=== PATIENT | male | born 1940 | race Caucasian/White ===

== ENCOUNTER 2020-01-26 19:13 | Inpatient (IN) | payer MEDICARE, BC, MEDICAID ==
[2020-01-26] MEDS ORDERED: Acetaminophen 325 MG TAB ONE (19:55)
--- NOTE | 2020-01-26 20:10 | RAD ---
Portable frontal chest radiograph: 01/26/2020 COMPARISON: None HISTORY: Altered mental status, Covid positive patient FINDINGS: Emphysematous changes are suspected in the upper lobes. There is a questionable nodule in t he mid right lung zone measuring 1.4 cm. No lobar consolidation or alveolar edema. IMPRESSION: Questionable mid right lung nodule as above. Follow-up PA and lateral imaging of the ches t advised. No focal consolidation or alveolar edema. CODE T Code lung nodule
[2020-01-26 20:20] LABS: #Eosinphils 0.1 thou/uL (0.0-0.7); #Lymphocytes 1.1 thou/uL (1.20-3.40); #Monocytes 1.1 thou/uL (0.11-0.59); #Neutrophils 9.9 thou/uL (1.40-6.50); %Basophils 0.4 % (0.0-1.0); %Eosinophils 0.6 % (0.0-10.0); %Lymphocytes 9.2 % (21.0-51.0); %Monocytes 8.7 % (0.0-10.0); %Neutrophils 81.1 % (42.0-75.0); Hemoglobin 15.4 g/dL (14.0-18.0); Mean Corpuscular HGB CONC 33.3 g/dL (32.0-36.0); Mean Corpuscular Hemoglobin 31.1 pg (27.0-31.0); Mean Corpuscular Volume 93.2 fL (78.0-98.0); Mean Platelet Volume 7.6 fL (7.4-10.4); Platelet Count 362 thou/uL (130-400); RBC Distribution Width 12.8 % (11.5-14.5); Red Blood Cell (RBC) Count 4.94 mill/uL (4.70-6.10); White Blood Cell (WBC) Count 12.2 thou/uL (4.8-10.8)
[2020-01-26 20:39] LABS: ALT (SGPT) 44 U/L (8-55); AST (SGOT) 67 U/L (5-34); Albumin 3.5 g/dL (3.4-4.8); Alkaline Phosphatase 87 U/L (40-110); Anion Gap 17 mmol/L (10-20); BUN (Urea Nitrogen) 44 mg/dL (8.4-25.7); Bilirubin, Total 0.3 mg/dL (0.2-1.2); Calc. Creatinine Clearance 0 mL/min (70-130); Calcium 9.3 mg/dL (7.8-10.44); Carbon Dioxide 25 mmol/L (23-31); Chloride 112 mmol/L (98-107); Estimated GFR-MDRD 45; Globulin 4.1 g/dL (2.4-3.5); Glucose 140 mg/dL (83-110); Potassium 3.8 mmol/L (3.5-5.1); Protein, Total 7.6 g/dL (5.8-8.1); Sodium 150 mmol/L (136-145)
[2020-01-26 21:04] LABS: Bacteria/HPF None Seen HPF (None Seen); Bilirubin Negative (Negative); Blood, Urine Negative (Negative); Clarity Turbid (Clear); Glucose, Urine (Dipstick) Normal (Negative); Ketone, Urine Negative (Negative); Leukocyte Negative Leu/uL (Negative); Nitrite Negative (Negative); Protein, Urine (Dipstick) 70 mg/dL (Neg-Trace); RBC/HPF None Seen HPF (0-3); Squamous Epithelial 0-3 HPF (0-3); Urobilinogen Normal mg/dL (Less than 2); WBC/HPF 0-3 HPF (0-3); pH, Urine 5.5 (5.0-9.0)
[2020-01-27 01:10] VITALS: BMI 21.5
[2020-01-27] MEDS: Sodium Chloride 0.45% 1,000 ML IV SCH ×2 (02:22→17:20)
--- NOTE | 2020-01-27 03:01 | HP ---
REASON FOR ADMISSION: Tachycardia. HISTORY OF PRESENT ILLNESS: This is an 79-year-old male patient who is a skilled nursing resident. He was transferred from another skilled nursing to [facility] because he tested positive for COVID-19 and that was approximately 2 weeks ago. I did speak with his niece over the phone who provided me with some information. She has not been getting much updates from [facility]. As far she knows, she was doing fairly well until today. He was noted to be tachycardic and refused to receive IV fluids or fluids and that is why he was sent to the emergency room. Upon his arrival, he was noted to be tachycardic and his blood work did reflect dehydration. He has also hypernatremia and he is being admitted for that reason. Patient is currently on the COVID unit. He appears to be comfortable, in no acute distress. Does not have any shortness of breath or cough. He is demented, unable to provide much information, his niece tells me that patient has been admitted to [facility] for multiple falls and one time he was diagnosed with bilateral subdural hematoma. No intervention was done or needed. Also, he was diagnosed with right hip fracture. He did undergo surgical repair. PAST MEDICAL HISTORY: 1. Dementia. 2. Hypothyroidism. 3. High blood pressure. 4. High cholesterol. 5. TIA. SOCIAL HISTORY: Unable to obtain due to his confusion. FAMILY HISTORY: Unable to obtain due to his confusion. ALLERGIES: NO NOTE TO HAVE ANY DRUG ALLERGY. REVIEW OF SYSTEMS: Unable to obtain due to his confusion. PHYSICAL EXAMINATION: GENERAL: He is awake, confused. VITAL SIGNS: His blood pressure is 119/77, heart rate of 117, temperature is 99.3, saturating 98% on room air. HEENT: Head is nontraumatic, normocephalic. Pupils equal, reactive. Extraocular movements are intact. Nonicteric sclerae. Well injected conjunctivae. Oral mucosa normal. Nasal mucosa normal. NECK: Supple. No adenopathy. No murmur. Thyroid is not palpable. Trachea is midline. No supraclavicular adenopathy. HEART: S1, S2 regular. No murmur. No gallops. No friction rubs. No displacement of PMI. LUNGS: Clear to auscultation bilaterally. No wheezes, rhonchi, or crackles. ABDOMEN: Bowel sounds are positive. Nontender abdomen. No hepatosplenomegaly. EXTREMITIES: No lower extremity edema. No cyanosis. SKIN: Reveals a stage 2 sacral decubitus ulcer. NEURO: Cranial nerves 2 through 12 within normal limits. Normal motor function. Normal sensory function. Normal reflexes. LABORATORY DATA: Blood work shows sodium 150, potassium 3.8, bicarb of 25, BUN of 44, creatinine 1.51. WBC 12.2, hemoglobin 15.4, platelets of 362. IMAGING DATA: Chest x-ray shows questionable mid right lung nodule, otherwise no consolidation or alveolar edema. EKG per my read shows sinus tachycardia, nonspecific T-wave abnormality. ASSESSMENT AND PLAN: This is an 79-year-old male patient, who is presenting with tachycardia, appears to be dehydrated due to the fact that he has dementia, also recent diagnosis of dysphagia. He tested positive for COVID-19 two weeks ago. Neuro: Patient has dementia. Continue to monitor him from the neurological standpoint. Renal: Patient has hypernatremia. I will gently hydrate him. Recheck his sodium and adjust hydration accordingly. GI: We will ask our Speech and Swallow team to see him. For his decubitus ulcers, we will ask our wound care team to see him. When his med rec is done, we will resume his current medications. I did discuss the code status with the niece, she wishes him to be a do not resuscitate. Job ID: [id number]
[2020-01-27] MEDS ORDERED: Lidocaine 5% Patch TD PRN (03:26)
[2020-01-27] MEDS ORDERED: hydrALAZINE 10 MG TAB PO PRN (03:26)
[2020-01-27] MEDS ORDERED: Acetaminophen 325 MG TAB PO PRN (03:31)
[2020-01-27] MEDS ORDERED: guaiFENesin 200 MG TAB PO PRN (03:35)
[2020-01-27 05:00] LABS: #Eosinphils 0.1 thou/uL (0.0-0.7); #Lymphocytes 1.3 thou/uL (1.20-3.40); #Neutrophils 9.1 thou/uL (1.40-6.50); %Basophils 0.1 % (0.0-1.0); %Eosinophils 0.8 % (0.0-10.0); %Lymphocytes 11.6 % (21.0-51.0); %Monocytes 8.8 % (0.0-10.0); %Neutrophils 78.7 % (42.0-75.0); Hemoglobin 13.1 g/dL (14.0-18.0); Mean Corpuscular Hemoglobin 31.2 pg (27.0-31.0); Mean Corpuscular Volume 94.6 fL (78.0-98.0); Mean Platelet Volume 7.5 fL (7.4-10.4); Platelet Count 351 thou/uL (130-400); RBC Distribution Width 12.9 % (11.5-14.5); Red Blood Cell (RBC) Count 4.21 mill/uL (4.70-6.10); White Blood Cell (WBC) Count 11.5 thou/uL (4.8-10.8)
[2020-01-27 05:12] LABS: Anion Gap 14 mmol/L (10-20); BUN (Urea Nitrogen) 39 mg/dL (8.4-25.7); Calc. Creatinine Clearance 41 mL/min (70-130); Calcium 8.6 mg/dL (7.8-10.44); Carbon Dioxide 25 mmol/L (23-31); Chloride 114 mmol/L (98-107); Estimated GFR-MDRD 57; Glucose 105 mg/dL (83-110); Potassium 3.5 mmol/L (3.5-5.1); Sodium 149 mmol/L (136-145)
[2020-01-27] MEDS: Levothyroxine Sodium 50 MCG TAB PO SCH (07:19)
[2020-01-27] MEDS: Ascorbic Acid 500 mg Chewable Tablet PO SCH (10:50)
[2020-01-27] MEDS: Ferrous Sulfate 325 MG TAB PO SCH (10:50)
[2020-01-27] MEDS: Enoxaparin Sodium 40 MG/0.4 ML SYRINGE SC SCH (10:50)
[2020-01-27] MEDS: Cholecalciferol 1,000 UNITS (25 MCG) TAB PO SCH (10:51)
[2020-01-27] MEDS: Zinc Sulfate 220 MG CAP PO SCH (10:52)
--- NOTE | 2020-01-27 10:52 | PDOC.EVN ---
Event Note - Event Note Event Note: Patient seen and examined. Not oriented but in no distress. Sodium still high but creatinine improved. Will need another midnight for further IV fluid resuscitation. Change to inpatient status.
[2020-01-27 12:15] LABS: SARS-CoV-2 MS2 Positive
[2020-01-27 12:16] LABS: SARS-CoV-2 N Gene Negative; SARS-CoV-2 S Gene Negative; SARS-CoV-2 by NAA DETECTED (NotDetected); SARS-CoV-2 orf1ab Negative
[2020-01-27 14:02] LABS: Anion Gap 13 mmol/L (10-20); BUN (Urea Nitrogen) 33 mg/dL (8.4-25.7); Calc. Creatinine Clearance 47 mL/min (70-130); Calcium 8.8 mg/dL (7.8-10.44); Carbon Dioxide 27 mmol/L (23-31); Chloride 113 mmol/L (98-107); Estimated GFR-MDRD 66; Glucose 93 mg/dL (83-110); Potassium 3.9 mmol/L (3.5-5.1); Sodium 149 mmol/L (136-145)
[2020-01-28] MEDS: Sodium Chloride 0.45% 1,000 ML IV SCH (03:51)
[2020-01-28 05:48] LABS: #Eosinphils 0.1 thou/uL (0.0-0.7); #Lymphocytes 1.5 thou/uL (1.20-3.40); #Monocytes 0.8 thou/uL (0.11-0.59); #Neutrophils 6.8 thou/uL (1.40-6.50); %Basophils 0.5 % (0.0-1.0); %Eosinophils 1.3 % (0.0-10.0); %Lymphocytes 16.4 % (21.0-51.0); %Monocytes 8.8 % (0.0-10.0); %Neutrophils 73.1 % (42.0-75.0); Hemoglobin 12.3 g/dL (14.0-18.0); Mean Corpuscular HGB CONC 33.6 g/dL (32.0-36.0); Mean Corpuscular Hemoglobin 31.5 pg (27.0-31.0); Mean Corpuscular Volume 93.7 fL (78.0-98.0); Mean Platelet Volume 7.4 fL (7.4-10.4); Platelet Count 365 thou/uL (130-400); RBC Distribution Width 12.7 % (11.5-14.5); Red Blood Cell (RBC) Count 3.93 mill/uL (4.70-6.10); White Blood Cell (WBC) Count 9.3 thou/uL (4.8-10.8)
[2020-01-28] MEDS: Levothyroxine Sodium 50 MCG TAB PO SCH (06:04)
[2020-01-28 06:13] LABS: Anion Gap 14 mmol/L (10-20); BUN (Urea Nitrogen) 27 mg/dL (8.4-25.7); Calc. Creatinine Clearance 53 mL/min (70-130); Calcium 8.6 mg/dL (7.8-10.44); Carbon Dioxide 24 mmol/L (23-31); Chloride 113 mmol/L (98-107); Estimated GFR-MDRD 71; Glucose 84 mg/dL (83-110); Potassium 3.7 mmol/L (3.5-5.1); Sodium 147 mmol/L (136-145)
[2020-01-28 07:02] VITALS: BP 128/70; TEMP 98.9
--- NOTE | 2020-01-28 09:27 | PDOC.HOSPP ---
- Subjective Encounter Date: 01/28/20 Encounter Time: 10:50 Subjective: Patient without changes overnight. Just says "Hi" and "I feel fine". Not eating much per nursing. - Objective Vital Signs & Weight: Vital Signs (12 hours) Temp Pulse Resp BP BP Pulse Ox 01/28/20 07:01 98.9 F 93 18 128/70 97 01/28/20 04:44 98.8 F 80 20 138/72 94 L 01/27/20 23:38 99.6 F 91 20 114/69 100 Weight Admit Weight 133 lb 9.6 oz Weight 141 lb 2 oz I&O: 01/27/20 01/28/20 01/29/20 06:59 06:59 06:59 Intake Total 900 Balance 900 Result Diagrams: 01/28/20 05:19 01/28/20 05:20 Hospitalist ROS - Review of Systems ROS unobtainable: due to mental status - Medication Medications: Active Medications Generic Name Dose Route Start Last Admin Trade Name Freq PRN Reason Stop Dose Admin Ascorbic Acid 1,000 mg 01/27/20 09:00 01/27/20 10:50 Ascorbic Acid 500 Mg Chewable Tablet PO 1,000 mg DAILY GERALD Administration Cholecalciferol 10,000 units 01/27/20 09:00 01/27/20 10:51 Cholecalciferol 1,000 Units (25 Mcg) Tab PO 10,000 units DAILY GERALD Administration Enoxaparin Sodium 40 mg 01/27/20 09:00 01/27/20 10:50 Enoxaparin Sodium 40 Mg/0.4 Ml Syringe SC 40 mg 0900 GERALD Administration Ferrous Sulfate 325 mg 01/27/20 09:00 01/27/20 10:50 Ferrous Sulfate 325 Mg Tab PO 325 mg DAILY GERALD Administration Sodium Chloride 1,000 mls @ 75 mls/hr 01/27/20 00:45 01/28/20 03:51 1/2 Normal Saline IV 1,000 mls .[id number] GERALD Administration Levothyroxine Sodium 50 mcg 01/27/20 06:00 01/28/20 06:04 Levothyroxine Sodium 50 Mcg Tab PO 50 mcg 0600 GERALD Administration Zinc Sulfate 220 mg 01/27/20 09:00 01/27/20 10:52 Zinc Sulfate 220 Mg Cap PO 220 mg DAILY GERALD Administration - Exam General Appearance: NAD, awake alert ENT: moist mucosa Heart: RRR, no murmur, no gallops, no rubs Respiratory: CTAB, no wheezes, no rales, no ronchi Gastrointestinal: soft, non-tender, non-distended, normal bowel sounds Psychiatric: normal affect, normal behavior. negative: A&O x 3 Hosp A/P (1) Hypernatremia Code(s): E87.0 - HYPEROSMOLALITY AND HYPERNATREMIA Status: Acute (2) Tachycardia Code(s): R00.0 - TACHYCARDIA, UNSPECIFIED Status: Resolved (3) Acute renal failure Status: Resolved (4) Dementia Code(s): F03.90 - UNSPECIFIED DEMENTIA WITHOUT BEHAVIORAL DISTURBANCE Status: Chronic (5) HLD (hyperlipidemia) Code(s): E78.5 - HYPERLIPIDEMIA, UNSPECIFIED Status: Chronic (6) HTN (hypertension) Code(s): I10 - ESSENTIAL (PRIMARY) HYPERTENSION Status: Chronic (7) Hypothyroid Code(s): E03.9 - HYPOTHYROIDISM, UNSPECIFIED Status: Chronic - Plan Patient appears well hydrated. Sodium level improved, though will need to push fluids on return to group home. Vitals normalized with normal heart rate. Stable for discharge back to group home today. Repeat lab in one week. I spoke with Vivien, patient's niece and MPOA, about patient's improvement but possibility of recurrent problems if patient doesn't improve his po intake in the future. Also mentioned possibilities of PEG vs. hospice should these pr oblems continue to recur.
[2020-01-28] MEDS: Cholecalciferol 1,000 UNITS (25 MCG) TAB PO SCH (10:34)
[2020-01-28] MEDS: Ascorbic Acid 500 mg Chewable Tablet PO SCH (10:34)
[2020-01-28] MEDS: Ferrous Sulfate 325 MG TAB PO SCH (10:34)
[2020-01-28] MEDS: Enoxaparin Sodium 40 MG/0.4 ML SYRINGE SC SCH (10:35)
[2020-01-28] MEDS: Zinc Sulfate 220 MG CAP PO SCH (10:45)
--- NOTE | 2020-01-29 02:37 | DIS ---
DATE OF ADMISSION: 01/27/2020 DATE OF DISCHARGE: 01/28/2020 PRIMARY CARE PHYSICIAN: . REASON FOR ADMISSION: Tachycardia and dehydration. DIAGNOSES AT DISCHARGE: 1. Dehydration, resolved. 2. Hypernatremia, improved. 3. Tachycardia, resolved. 4. Acute renal failure, resolved. 5. Dementia. 6. Hyperlipidemia. 7. Hypertension. 8. Hypothyroidism. PROCEDURES: None. CONSULTATIONS: None. SUMMARY OF HOSPITAL COURSE: This is an 79-year-old patient with advanced dementia and recent COVID diagnosis and transferred to [facility] for isolation about 11 days prior to presentation to our hospital. The patient was noted to be tachycardic and in need of IV fluids and so he was transferred to the hospital here. He was found to be hypernatremic with an acute renal failure, but otherwise appeared comfortable in no distress, just had the persistent tachycardia. The patient was given IV fluids down in the emergency room with resolution of his renal failure and improvement in his tachycardia. He was then placed on continued IV fluid infusion in the hospital. Speech Therapy was consulted and they did recommend a textured diet. The patient had improvement in his hypernatremia and resolution of his tachycardia during hospitalization. He appeared well hydrated on the day of discharge and is being discharged back to the halfway. DISCHARGE MANAGEMENT: Discharged back to halfway. ACTIVITY: As tolerated. DIET: Regular diet with NDD-1 texture extra sauce and gravy and nectar-thick liquids by spoon only and is also to get [employer] t.i.d. with meals and they are to push his fluids therapy, speech therapy. FOLLOWUP: Basic metabolic panel in one week with his doctor at the halfway. DISCHARGE MEDICATIONS: 1. Acetaminophen as needed. 2. Vitamin C 1000 mg daily. 3. Vitamin D3 250 mcg daily. 4. Ferrous sulfate 325 mg daily. 5. Guaifenesin 800 mg 3 times a day as needed for cough. 6. Hydralazine 10 mg every 8 hours as needed for severe hypertension. 7. Levothyroxine 50 mcg daily. 8. Lidocaine patch applied as needed for pain. 9. Zinc 50 mg daily. 10. Mirtazapine 15 mg at night. 11. Seroquel 50 mg in the morning, 100 mg at night. TIME SPENT: Arranging the details of this discharge took 35 minutes. Job ID: [id number]
--- NOTE | 2020-01-30 23:30 | PQF ---
CLINICAL DOCUMENTATION CLARIFICATION FORM: Dear : Adrien Ashley Date / Time: 01/31/2020 Please exercise your independent, professional judgment in responding to the clarification form. Clinical indicators are provided on the bottom of this form for your review Please check appropriate box(es): [ ] Hypernatremia/dehydration/tachycardia is due to COVID-19 [ X ] Hypernatremia/dehydration/tachycardia is not due to COVID-19 [ ] Other diagnosis [ ] Unable to determine In addition, please specify: Present on Admission (POA): [ X ] Yes [ ] No [ ] Unable to determine To be completed by CDI/Coding staff for physician review: Present Clinical Indicators - Signs / Symptoms / Labs Results and Location in Medical Record [ x ] He was transferred from another facility to [facility] because he tested positive for COVID-19 that was approximately 2 weeks ago H and P [ x ] He was noted to be tachycardic and refused to receive IV fluids and that is why he was sent to the ED. His blood work did reflect dehydration and also has hypernatremia and is being admitted for that reason H and P [ x ] Patient was tachycardic, in need of IV fluids and was transferred to the hospital here. He was found to be hypernatremic with an acute renal failure, but otherwise appeared comfortable, just had the persistent tachycardia Discharge summary Present Risk Factors Results and Location in Medical Record [ x ] Recently positive COVID-19, transfer for IV fluids for dehydration Discharge summary Present Treatments Results and Location in Medical Record [ x ] IV fluids 01/26-01/27 Medications [ x ] Daily CBCs Laboratory CDS/Top Inventory Control Executive Signature: SJ1 Phone #: Date/Time: 01/31/2020 This is a permanent part of the Medical Record [facility]
--- NOTE | 2020-01-31 11:54 | EKG ---
Test Reason : Blood Pressure : / mmHG Vent. Rate : 107 BPM Atrial Rate : 107 BPM P-R Int : 128 ms QRS Dur : 076 ms QT Int : 334 ms P-R-T Axes : 069 048 228 degrees QTc Int : 445 ms Sinus tachycardia Possible Left atrial enlargement Nonspecific T wave abnormality Abnormal ECG Confirmed by ALEJANDRO SOARES M.D. ([id number]), state editor DARRELL MCGOWAN ([id number]) on 01/31/2020 11:54:25 AM Referred By: Confirmed By:ALEJANDRO SOARES M.D.
== END 2020-01-28 15:14 | DRG 682 ==
LOC: ERS 19:13 → 2SW 22:41 → OBSVTOIN 01-27 10:04 → T4-B 01-27 17:15
PROVIDERS: ADMIT Internal Medicine; ATTEND Emergency Medicine
DX: N17.9 Acute kidney failure, unspecified (principal); U07.1 COVID-19; E87.0 Hyperosmolality and hypernatremia; Z66 Do not resuscitate; L89.152 Pressure ulcer of sacral region, stage 2; E86.0 Dehydration; F03.90 Unspecified dementia, unspecified severity, without behavioral disturbance, psychotic disturbance, mood disturbance, and anxiety; E78.5 Hyperlipidemia, unspecified; R00.0 Tachycardia, unspecified; I10 Essential (primary) hypertension; E03.9 Hypothyroidism, unspecified; Z86.73 Personal history of transient ischemic attack (TIA), and cerebral infarction without residual deficits; Z91.81 History of falling
CPT/HCPCS: 36415; 51701; 71045; 80048; 80053; 81003; 81015; 84484; 85025; 87635; 93005; 94760; G0378; J1650; U0003